=== PATIENT | female | born 1970 | race Caucasian/White ===

== ENCOUNTER 2017-04-07 12:55 | Emergency (ER) | payer BC ==
[2017-04-07 13:09] VITALS: BP 128/91
[2017-04-07] MEDS ORDERED: Bacitracin/Neomycin/Polymyxin B Oint 0.9 GM U/D Packet ONE (13:22)
--- NOTE | 2017-04-07 13:28 | EDM.PDOC ---
ED HPI GENERAL MEDICAL PROBLEM - General Chief Complaint: Laceration Stated Complaint: LT HAND/BATTERY DROPPED ON HER HAND Time Seen by Provider: 04/07/17 13:22 Source of Information: Reports: Patient History Limitations: Reports: No Limitations - History of Present Illness INITIAL COMMENTS - FREE TEXT/NARRATIVE: Dropped heavy battery on hand pinching skin and causing injury. Onset: Sudden Duration: Minutes: Location: Reports: Upper Extremity, Left Severity: Mild Worsens with: Reports: None Context: Reports: Activity Associated Symptoms: Reports: No Other Symptoms Left Hand Pain Score (Numeric/FACES): 6 - Related Data Allergies Allergy/AdvReac Type Severity Reaction Status Date / Time amoxicillin Allergy Cannot Verified 04/07/17 13:02 Remember Home Meds: Home Meds Pantoprazole Sodium [Protonix] 20 mg PO DAILY 04/07/17 [History] Propranolol [Inderal LA] 80 mg PO DAILY 04/07/17 [History] amLODIPine [Norvasc] 10 mg PO DAILY 04/07/17 [History] Past Medical History Cardiovascular History: Reports: Hypertension - Past Surgical History HEENT Surgical History: Reports: Tonsillectomy GI Surgical History: Reports: Bariatric Procedure, Cholecystectomy, Other (See Below) Other GI Surgeries/Procedures: gastric bypass Social & Family History - Tobacco Use Smoking Status *Q: Never Smoker - Caffeine Use Caffeine Use: Reports: None - Recreational Drug Use Recreational Drug Use: No ED ROS GENERAL - Review of Systems Review Of Systems: ROS reveals no pertinent complaints other than HPI. ED EXAM, SKIN/RASH Exam: See Below Text/Narrative:: A pinch injruy of the palm of handnear the wrist. there is no laceration, just 3 cm area of crushed skin. Exam Limited By: No Limitations General Appearance: Alert Ears: Normal External Exam Nose: Normal Inspection Throat/Mouth: Normal Inspection Head: Atraumatic Neck: Normal Inspection Respiratory/Chest: No Respiratory Distress Cardiovascular: Normal Peripheral Pulses Back Exam: Normal Inspection Extremities: Normal Inspection Skin: Wound/Incision Location, Skin: Upper Extremity, Left Front/Back Body Diagram: 1 - 3 cm pinch injury on palm of hand. Course - Vital Signs Last Recorded V/S: Last Vital Signs Temp 97.8 F 04/07/17 13:06 Pulse 72 04/07/17 13:06 Resp 16 04/07/17 13:06 BP 128/91 H 04/07/17 13:06 Pulse Ox 97 04/07/17 13:06 - Orders/Labs/Meds Orders: Active Orders 24 hr Category Date Time Status Hand Comp Min 3V Lt [CR] Stat Exams 04/07/17 13:12 Ordered Departure - Departure Time of Disposition: 13:27 Disposition: Home, Self-Care 01 Condition: Good Clinical Impression: Contusion of hand - Discharge Information Forms: ED Department Discharge Additional Instructions: Keep wound clean and dry. - My Orders Last 24 Hours: My Active Orders 04/07/17 13:12 Hand Comp Min 3V Lt [CR] Stat - Assessment/Plan Last 24 Hours: My Active Orders 04/07/17 13:12 Hand Comp Min 3V Lt [CR] Stat
[2017-04-07] MEDS ORDERED: Diphtheria/Tetanus Toxoids,Adult (Td) 0.5 ML Syringe IM ONE (13:33)
== END 2017-04-07 13:40 | disposition home or self-care (01) ==
LOC: CC.ED 12:55
DX: S60.222A Contusion of left hand, initial encounter (principal); I10 Essential (primary) hypertension; Z98.890 Other specified postprocedural states; Z98.84 Bariatric surgery status; Z88.1 Allergy status to other antibiotic agents; Z79.899 Other long term (current) drug therapy; Z90.49 Acquired absence of other specified parts of digestive tract; W20.8XXA Other cause of strike by thrown, projected or falling object, initial encounter
CPT/HCPCS: 90471; 90714; 96372; 99282